=== PATIENT | female | born 1965 | race Caucasian/White ===

== ENCOUNTER 2020-01-29 17:53 | Emergency (ER) | payer OTHER ==
[~2020-01-29] VITALS: Ht 157.5 cm; Wt 81.7 kg
[2020-01-29] MEDS ORDERED: BENICAR20 MG PO (18:21)
[2020-01-29] MEDS ORDERED: FLUTICASONE PRO30 G1 TOP (18:21)
[2020-01-29] MEDS ORDERED: SPIRIVA INH (18:21)
[2020-01-29] MEDS ORDERED: MONTELUKAST SODI4 M1 PO (18:22)
[2020-01-29] MEDS ORDERED: OMEPRAZOLE 20 M20 M1 PO (18:22)
[2020-01-29] MEDS ORDERED: CETIRIZINE HCL5 MG PO (18:22)
[2020-01-29] MEDS ORDERED: NAPROSYN500 M1 PO (18:22)
[2020-01-29] MEDS ORDERED: KLOR-CON 1010 MEQ PO (18:23)
[2020-01-29] MEDS ORDERED: FLEXERIL PO (18:23)
[2020-01-29] MEDS ORDERED: CELEXA 10 MG TA10 M1 PO (18:23)
[2020-01-29] MEDS ORDERED: TRAMADOL100 MG PO (18:24)
[2020-01-29] MEDS ORDERED: ADVAIR 100-501 EACH INH (18:24)
[2020-01-29] MEDS ORDERED: ALPRAZOLAM XR3 MG PO (18:24)
[2020-01-29] MEDS ORDERED: VENTOLIN HFA 1818 GM INH (18:24)
[2020-01-29] MEDS ORDERED: NORCO 5-325 TA1 EAC1 PO (19:20)
[2020-01-29] MEDS ORDERED: IBUPROFEN 800800 M1 PO (19:20)
[2020-01-29 20:18] VITALS: BP 121/78
== END 2020-01-29 20:19 | disposition home or self-care (01) ==
LOC: M.ERS 17:53
DX: S52.122A Displaced fracture of head of left radius, initial encounter for closed fracture (principal); I10 Essential (primary) hypertension; J45.909 Unspecified asthma, uncomplicated; M19.90 Unspecified osteoarthritis, unspecified site; Z88.0 Allergy status to penicillin; Z88.1 Allergy status to other antibiotic agents; Z88.2 Allergy status to sulfonamides; W01.0XXA Fall on same level from slipping, tripping and stumbling without subsequent striking against object, initial encounter; Y93.89 Activity, other specified; Y92.89 Other specified places as the place of occurrence of the external cause; Y99.8 Other external cause status